=== PATIENT | female | born 1960 | race African-American/Black ===

== ENCOUNTER 2018-08-06 02:08 | Inpatient (IN) | payer SELFPAY ==
[~2018-08-06] VITALS: Ht 167.6 cm; Wt 78.5 kg
[2018-08-06] MEDS ORDERED: SODIUM CHLORIDE 0.9% 1,000 ML IV ONE (04:01)
[2018-08-06 04:05] LABS: CHLORIDE 98 mEq/L (98-107)
[2018-08-06 04:14] LABS: BASOPHILS % 0.1 % (0.0-2.0); EOSINOPHILS % 0.1 % (0.0-5.0); HEMATOCRIT. 38.2 % (36.0-48.0); HEMOGLOBIN. 12.8 g/dL (12.0-16.0); LYMPHOCYTES % 9.7 % (20.0-50.0); MEAN CORPUSCULAR HEMOGLOBIN 27.8 pg (28.0-32.0); MEAN PLATELET VOLUME 9.3 fl (7.4-10.4); MONOCYTES % 5.1 % (2.0-8.0); PLATELET 253 x1000/uL (130-400); RED CELL DISTRIBUTION WIDTH 13.6 % (11.6-14.6)
[2018-08-06] MEDS ORDERED: CEFTRIAXONE 1 G PREMIX 50 ML IV NR (05:30)
[2018-08-06] MEDS ORDERED: AZITHROMYCIN 500 MG in DEXT 5% WATER 250 ML IV SCH (05:30)
[2018-08-06] MEDS ORDERED: IPRATROPIUM/ALBUTEROL 0.5-3(2.5)MG/3ML NEB INH PRN (15:15)
[2018-08-06] MEDS ORDERED: DEXTROSE 50% WATER 50ML SYRINGE IV PRN (15:45)
[2018-08-06] MEDS: INSULIN LISPRO 100 UNITS/ML SUBCUT SCH ×3 (15:55→21:33)
[2018-08-06 16:28] VITALS: BP 141/90
[2018-08-06 16:45] VITALS: BP 141/90
[2018-08-06] MEDS: BLOOD SUGAR DIAGNOSTIC STRIP TEST SCH ×2 (17:48→21:30)
[2018-08-06] MEDS ORDERED: INSULIN LISPRO 100 UNITS/ML SUBCUT SCH (17:50)
[2018-08-06] MEDS: SODIUM CHLORIDE 0.45% 1,000 ML IV SCH (18:19)
[2018-08-06 19:16] LABS: CLARITY URINE CLEAR (CLEAR); COLOR URINE YELLOW (YELLOW); KETONES URINE TRACE (NEGATIVE); LEUKOCYTE ESTERASE URINE NEGATIVE (NEGATIVE); NITRITE URINE NEGATIVE (NEGATIVE); OCCULT BLOOD URINE NEGATIVE (NEGATIVE); PROTEIN URINE 1+ (NEGATIVE); SPECIFIC GRAVITY URINE 1.027 (1.005-1.030)
[2018-08-06 19:17] LABS: BASOPHILS % 0.4 % (0.0-2.0); EOSINOPHILS % 0.5 % (0.0-5.0); HEMATOCRIT. 36.6 % (36.0-48.0); HEMOGLOBIN. 12.5 g/dL (12.0-16.0); LYMPHOCYTES % 29.7 % (20.0-50.0); MEAN CORPUSCULAR HEMOGLOBIN 28.3 pg (28.0-32.0); MEAN CORPUSCULAR VOLUME 82.6 fL (81.0-99.0); MEAN PLATELET VOLUME 9.6 fl (7.4-10.4); NEUTROPHILS % 61.4 % (40.0-76.0); PLATELET 257 x1000/uL (130-400); RED BLOOD CELL COUNT 4.43 mill/uL (4.2-5.4); RED CELL DISTRIBUTION WIDTH 13.7 % (11.6-14.6)
[2018-08-06 19:32] LABS: CHLORIDE 102 mEq/L (98-107)
[2018-08-06 19:40] LABS: CREATINE KINASE 221 IU/L (26-192); CREATINE KINASE MB FRACTION 1.8 ng/mL (0.5-3.6)
[2018-08-06 19:42] LABS: T4 FREE 0.98 ng/dL (0.76-1.46)
[2018-08-06 19:50] LABS: *AMPHETAMINES SCREEN URINE NEGATIVE (NEGATIVE); *BARBITURATES SCREEN URINE NEGATIVE (NEGATIVE); *BENZODIAZEPINES SCREEN URINE NEGATIVE (NEGATIVE); *COCAINE SCREEN URINE NEGATIVE (NEGATIVE); CANNABINOID URINE SCREEN NEGATIVE (NEGATIVE); METHADONE URINE SCREEN NEGATIVE (NEGATIVE); OPIATES URINE SCREEN NEGATIVE (NEGATIVE); PHENCYCLIDINE URINE SCREEN NEGATIVE (NEGATIVE)
[2018-08-06 20:00] VITALS: BP 128/75
[2018-08-06] MEDS: SODIUM CHLORIDE 0.9% INJ 3ML FLUSH IVF SCH (21:22)
[2018-08-07] VITALS: BP 129/88
[2018-08-07 03:32] LABS: CREATINE KINASE 298 IU/L (26-192); CREATINE KINASE MB FRACTION 1.8 ng/mL (0.5-3.6)
[2018-08-07] MEDS ORDERED: OMEP20CA10 PO (04:01)
[2018-08-07] MEDS ORDERED: METF500T60 PO (04:01)
[2018-08-07] MEDS ORDERED: GLIP10TA10 PO (04:02)
[2018-08-07] MEDS ORDERED: AMLO10TA80 PO (04:02)
[2018-08-07] MEDS ORDERED: LISI-604 PO (04:02)
[2018-08-07] MEDS ORDERED: HYDR25TA PO (04:02)
[2018-08-07] MEDS ORDERED: ATOR20TA65 PO (04:02)
[2018-08-07] MEDS: SODIUM CHLORIDE 0.9% INJ 3ML FLUSH IVF SCH ×3 (05:40→22:00)
[2018-08-07] MEDS: BLOOD SUGAR DIAGNOSTIC STRIP TEST SCH ×4 (06:07→20:36)
[2018-08-07 06:38] VITALS: BP 132/60
[2018-08-07 08:00] VITALS: BP 147/88
[2018-08-07] MEDS: INSULIN LISPRO 100 UNITS/ML SUBCUT SCH ×4 (08:55→20:40)
[2018-08-07] MEDS: SODIUM CHLORIDE 0.45% 1,000 ML IV SCH (08:57)
[2018-08-07 12:00] VITALS: BP 127/79
[2018-08-07] MEDS: GLIPIZIDE 10MG TABLET PO SCH ×2 (12:29→16:34)
[2018-08-07] MEDS: OMEPRAZOLE 20MG CAPSULE EXTENDED RELEASE PO SCH (12:29)
[2018-08-07] MEDS: HYDROCHLOROTHIAZIDE 25MG TABLET PO SCH (12:29)
[2018-08-07] MEDS: AMLODIPINE 10MG TABLET PO SCH (12:30)
[2018-08-07 13:23] LABS: CREATINE KINASE 354 IU/L (26-192); CREATINE KINASE MB FRACTION 2.1 ng/mL (0.5-3.6)
[2018-08-07 16:00] VITALS: BP 136/84
[2018-08-07 20:00] VITALS: BP 157/94
[2018-08-07] MEDS ORDERED: ATORVASTATIN CALCIUM 20MG TABLET PO SCH (21:00)
[2018-08-08] VITALS: BP 145/108
[2018-08-08] MEDS: SODIUM CHLORIDE 0.45% 1,000 ML IV SCH (00:35)
[2018-08-08 04:00] VITALS: BP 145/91
[2018-08-08] MEDS: SODIUM CHLORIDE 0.9% INJ 3ML FLUSH IVF SCH ×2 (05:18→14:00)
[2018-08-08] MEDS: OMEPRAZOLE 20MG CAPSULE EXTENDED RELEASE PO SCH (06:02)
[2018-08-08] MEDS: GLIPIZIDE 10MG TABLET PO SCH ×2 (06:03→17:20)
[2018-08-08] MEDS: BLOOD SUGAR DIAGNOSTIC STRIP TEST SCH ×3 (07:33→17:20)
[2018-08-08 07:58] VITALS: BP 142/79
[2018-08-08] MEDS: HYDROCHLOROTHIAZIDE 25MG TABLET PO SCH (08:24)
[2018-08-08] MEDS: AMLODIPINE 10MG TABLET PO SCH (08:24)
[2018-08-08] MEDS: INSULIN LISPRO 100 UNITS/ML SUBCUT SCH ×3 (08:25→17:52)
[2018-08-08] MEDS ORDERED: REGADENOSON 0.4 MG/5 ML IV ONE ×2 (09:00→11:43)
[2018-08-08 10:25] LABS: BASOPHILS % 0.7 % (0.0-2.0); EOSINOPHILS % 3.8 % (0.0-5.0); LYMPHOCYTES % 47.1 % (20.0-50.0); MEAN CORPUSCULAR HEMOGLOBIN 28.2 pg (28.0-32.0); MEAN CORPUSCULAR VOLUME 82.7 fL (81.0-99.0); MEAN PLATELET VOLUME 9.2 fl (7.4-10.4); NEUTROPHILS % 40.4 % (40.0-76.0); PLATELET 261 x1000/uL (130-400); RED BLOOD CELL COUNT 4.59 mill/uL (4.2-5.4); RED CELL DISTRIBUTION WIDTH 13.7 % (11.6-14.6)
[2018-08-08 14:19] LABS: CHLORIDE 102 mEq/L (98-107)
[2018-08-08 16:01] VITALS: BP 125/71
[2018-08-08 16:07] VITALS: BP 140/84
[2018-08-09] MEDS ORDERED: FAMOTIDINE 20MG TABLET PO SCH (09:00)
== END 2018-08-08 18:35 | disposition home or self-care (01) | DRG 203 ==
LOC: ER 02:27 → 6WST 05:14 → EDBEDREQ 05:16 → EDBEDREQTM 05:16 → ENRESERV 13:06
PROVIDERS: ADMIT Family Medicine; ATTEND Family Medicine
DX: R07.9 Chest pain, unspecified (principal); E11.9 Type 2 diabetes mellitus without complications; I10 Essential (primary) hypertension; R11.2 Nausea with vomiting, unspecified; R51 Headache
CPT/HCPCS: 36415; 71045; 78452; 80061; 80305; 82550; 82553; 82962; 83036; 83880; 84439; 84443; 84484; 85379; 93005; 93017; 93306; 93880; 96361; 96365; 96366; 96367; 99285; A9500; J0456; J0696; J1815; J2785; J7030; J7060